=== PATIENT | male | born 1995 | race African-American/Black ===

== ENCOUNTER 2017-03-25 11:13 | Emergency (ER) | payer SELFPAY ==
[2017-03-25 11:36] VITALS: BP 111/60; PULSE 62; TEMP 98.1; BMI 23.5
--- NOTE | 2017-03-25 12:03 | PDOC ---
Suture Removal/Wound Check HPI - History of Present Illness Chief Complaint: Suture/Staple Removal(Here) Stated Complaint: SUTURE REMOVAL Time Seen by Provider: 03/25/17 12:03 History Source: Yes: Patient Exam Limitations: Yes: No Limitations. No: Intubated Treated at: Other ED ([facility]) Date of Last ED visit: 03/16/17 - Onset of Previous Treatment Date of Occurence: 03/16/17 Past History - Past Medical History Allergies/Adverse Reactions: Allergies Allergy/AdvReac Type Severity Reaction Status Date / Time No Known Allergies Allergy Verified 03/25/17 11:33 Home Medications: Ambulatory Orders NK [No Known Home Medication] 03/25/17 Asthma: Yes COPD: No - Suicide/Smoking/Psychosocial Hx Smoking History: Current every day smoker Have you smoked in the past 12 months: Yes Number of Cigarettes Smoked Daily: 3 Information on smoking cessation initiated: No Suture Removal/Wound Check PE - Physical Exam Laceration/Wound Check Symptoms: reports: Other Comment Comments: 03/25/17 12:13 pt. has 9 interrupted sutures to his left distal palmar index finger and 4 interrupted sutures to his left medial forearm. Patient has minimal erythema around sutures on his left index finger no discharge. Patient also has minor tenderness of left distal palmar index finger. Current Severity Level: Mild Maximum Severity Level: Moderate Location of Laceration/Wound: left: Finger (index finger ) *Review of Systems - Review of Systems Able to Perform ROS?: Yes Constitutional: No: Symptoms Reported HEENTM: No: Symptoms Reported Respiratory: No: Symptoms reported Cardiac (ROS): No: Symptoms Reported ABD/GI: No: Symptoms Reported Musculoskeletal: No: Symptoms Reported Integumentary: Yes: Other (9 interrupted suture left palmar finger, left forearm [address] on 03/16/17 [facility] ) Neurological: No: Symptoms reported Procedures - Additional Procedures Progress: 03/25/17 12:16 Cleansed laceration on left index finger and left forearm with Betadine and normal saline 0.9% dried area applied tiny amount of bacitracin ointment bandaid applied Medical Decision Making - Medical Decision Making 03/25/17 12:16 Left index finger 9 interrupted sutures placed on 03/16/2017 and left forearm 4 interrupted sutures at [facility] will have patient come back in 4 days for suture removal PLAN: return in 4 days for suture removal *DC/Admit/Observation/Transfer Diagnosis at time of Disposition: Visit for wound check - Discharge Dispostion Disposition: HOME Condition at time of disposition: Stable - Referrals - Patient Instructions Additional Instructions: Cleanse wounds on left index finger and left forearm daily with antibacterial soap and water pat dry and apply a tiny amount of bacitracin cover with Band- Aid when out of the home Return here in 4 days for suture removal or sooner if any redness around suture lines that worsens Patient voiced understanding of discharge instructions and all questions were answered - Post Discharge Activity
== END 2017-03-25 12:31 | disposition home or self-care (01) ==
LOC: JERFT 11:13
DX: Z48.01 Encounter for change or removal of surgical wound dressing (principal)
CPT/HCPCS: 99281-25

== ENCOUNTER 2017-03-30 12:12 | Emergency (ER) | payer SELFPAY ==
[2017-03-30 12:23] VITALS: BP 98/50; PULSE 64; TEMP 98.6; BMI 23.5
--- NOTE | 2017-03-30 13:43 | PDOC ---
Suture Removal/Wound Check HPI - History of Present Illness Chief Complaint: Suture/Staple Removal(Here) Stated Complaint: SUTURE REMOVAL Time Seen by Provider: 03/30/17 12:33 History Source: Yes: Patient Exam Limitations: Yes: No Limitations Treated at: Other ED ([facility] 03/17/17) Date of Last ED visit: 03/16/17 - Previous ED Treatment Type of procedure performed on last visit: Yes: Laceration Repair Tetanus Immunization: Yes: Up to Date - Onset of Previous Treatment Date of Occurence: 03/17/17 Past History - Past Medical History Allergies/Adverse Reactions: Allergies Allergy/AdvReac Type Severity Reaction Status Date / Time No Known Allergies Allergy Verified 03/30/17 12:23 Home Medications: Ambulatory Orders NK [No Known Home Medication] 03/25/17 Asthma: Yes COPD: No - Suicide/Smoking/Psychosocial Hx Smoking History: Current every day smoker Have you smoked in the past 12 months: Yes Number of Cigarettes Smoked Daily: 10 Information on smoking cessation initiated: No Hx Alcohol Use: No Drug/Substance Use Hx: No Suture Removal/Wound Check PE - Physical Exam Laceration/Wound Check Symptoms: reports: Pain (to left index finger laceration) Current Severity Level: Mild Maximum Severity Level: Moderate Location of Laceration/Wound: left: Forearm (medial forearm ), Finger (index finger ) *Review of Systems - Review of Systems Able to Perform ROS?: Yes Constitutional: No: Symptoms Reported, Unintentional Wgt. Loss Respiratory: No: Symptoms reported Cardiac (ROS): No: Symptoms Reported ABD/GI: No: Symptoms Reported : No: Testicular Mass Integumentary: Yes: Other (laceration left index finger palmar aspect, left medial forearm ) Procedures - Consent Consent obtained: From Patient - Additional Procedures Progress: 03/30/17 13:40 Lenses left index finger with Betadine and normal saline 0.9% 9 interrupted sutures removed from left index palmar finger laceration wound edges not well approximated on medial aspect slight gap noted, Dermabond applied to this area 4 interrupted sutures remember removed from left medial forearm slight gap of wound approximation noted this area was cleansed with Betadine and normal saline 0.9% dried well and tiny amount of her rib on applied to this area Medical Decision Making - Medical Decision Making 03/30/17 13:41 Left finger 9 interrupted sutures removed Left medial forearm before interrupted sutures removed Plan: Patient to cleanse area twice daily with antibacterial soap and water pat dry and apply a tiny amount of bacitracin ointment *DC/Admit/Observation/Transfer Diagnosis at time of Disposition: Visit for suture removal - Discharge Dispostion Disposition: HOME Condition at time of disposition: Stable - Referrals - Patient Instructions Additional Instructions: Cleanse wounds twice daily with antibacterial soap and water pat dry and apply tiny amount of bacitracin ointment allow Dermabond glue to fall off on its own cover wounds when out of home with Band-Aids that area out at night Return to emergency room if any redness around wound or any discharge or any fever Patient voiced understanding of discharge instructions all questions were answered - Post Discharge Activity
== END 2017-03-30 13:51 | disposition home or self-care (01) ==
LOC: JERFT 12:12
DX: Z48.02 Encounter for removal of sutures (principal)
CPT/HCPCS: 99281-25